=== PATIENT | female | born 1935 | race Caucasian/White ===

== ENCOUNTER 2017-09-28 12:29 | Emergency (ER) | payer MEDICARE, OTHER ==
[~2017-09-28] VITALS: Ht 157.5 cm; Wt 51.3 kg
[~2017-09-28 12:29] MED LIST: ASPI81CH; ATEN50 PO; OLME20
[2017-09-28] MEDS ORDERED: POTA10T PO (13:23)
[2017-09-28] MEDS ORDERED: ATEN50 PO (13:23)
[2017-09-28] MEDS ORDERED: FURO20 PO (13:24)
[2017-09-28] MEDS ORDERED: CHOL10002 PO (13:24)
[2017-09-28] MEDS ORDERED: CURAMIN (13:25)
[2017-09-28 14:06] LABS: BASOPHILS ABSOLUTE AUTO 0.05 K/mm3 (0.00-0.23); BASOPHILS PERCENT AUTO 1 % (0-2); EOSINOPHILS ABSOLUTE AUTO 0.15 K/mm3 (0.00-0.68); EOSINOPHILS PERCENT AUTO 3 % (0-6); Hematocrit 36.3 % (33.0-51.0); Hemoglobin 11.5 g/dL (11.5-16.0); IMMATURE GRAN ABSOLUTE AUTO 0.05 K/mm3 (0.00-0.10); IMMATURE GRAN PERCENT AUTO 1 % (0-1); LYMPHOCYTES ABSOLUTE AUTO 1.54 K/mm3 (0.84-5.20); LYMPHOCYTES PERCENT AUTO 27 % (21-46); MONOCYTES ABSOLUTE AUTO 0.51 K/mm3 (0.16-1.47); MONOCYTES PERCENT AUTO 9 % (4-13); Mean Corpuscular HGB 30.1 pg (26.0-34.0); Mean Corpuscular HGB Conc 31.7 g/dL (31.5-36.5); Mean Corpuscular Volume 95 fL (80-100); NEUTROPHILS ABSOLUTE AUTO 3.41 K/mm3 (1.96-9.15); NEUTROPHILS PERCENT AUTO 60 % (41-73); Platelet Count 172 K/mm3 (150-400); RDW Coefficient Variation 13.7 % (11.7-14.2); RDW Standard Deviation 47.7 fL (35.1-46.3); Red Blood Cell Count 3.82 M/mm3 (3.80-5.20); White Blood Cell Count 5.71 K/mm3 (4.00-11.30)
[2017-09-28 14:13] LABS: Albumin, Blood 3.6 g/dL (3.4-5.0); Albumin/Globulin Ratio 1.2 (0.8-1.8); Bilirubin, Total 0.4 mg/dL (0.1-1.0); Bun/Creatinine Ratio 19.7 (12.0-20.0); Calcium, Blood 8.8 mg/dL (8.5-10.1); Creatinine, Blood 1.17 mg/dL (0.40-1.00); Globulin, Blood 2.9 g/dL (2.2-4.0); Total Protein, Blood 6.5 g/dL (6.4-8.2)
== END 2017-09-28 15:01 | disposition home or self-care (01) ==
LOC: ER 12:29
PROVIDERS: Internal Medicine
DX: G45.9 Transient cerebral ischemic attack, unspecified (principal); I10 Essential (primary) hypertension; Z88.1 Allergy status to other antibiotic agents; Z88.0 Allergy status to penicillin; Z79.82 Long term (current) use of aspirin; Z79.899 Other long term (current) drug therapy
CPT/HCPCS: 36415; 70450; 80053; 81000; 85025; 93005; 93010; 93880; 99284

== ENCOUNTER 2020-03-14 05:05 | Emergency (ER) | payer MEDICARE, OTHER ==
[~2020-03-14] VITALS: Ht 154.9 cm; Wt 54.4 kg
[~2020-03-14 05:05] MED LIST changes: +CHOL10002 PO; +CURAMIN; +FURO20 PO; +POTA10T PO
== END 2020-03-14 09:40 | disposition home or self-care (01) ==
LOC: ER 05:05
DX: S22.089A Unspecified fracture of T11-T12 vertebra, initial encounter for closed fracture (principal); Z79.82 Long term (current) use of aspirin; Z79.899 Other long term (current) drug therapy; W01.0XXA Fall on same level from slipping, tripping and stumbling without subsequent striking against object, initial encounter
CPT/HCPCS: 72131; 93005; 93010; 99284-25

== ENCOUNTER 2020-10-26 06:00 | Inpatient (IN) | payer MEDICARE, OTHER ==
[~2020-10-26] VITALS: Ht 154.9 cm; Wt 46.2 kg
[2020-10-26 06:59] LABS: BASOPHILS ABSOLUTE AUTO 0.03 K/mm3 (0.00-0.23); BASOPHILS PERCENT AUTO 0 % (0-2); EOSINOPHILS ABSOLUTE AUTO 0.06 K/mm3 (0.00-0.68); EOSINOPHILS PERCENT AUTO 1 % (0-6); Hematocrit 38.7 % (33.0-51.0); Hemoglobin 12.2 g/dL (11.5-16.0); IMMATURE GRAN ABSOLUTE AUTO 0.04 K/mm3 (0.00-0.10); IMMATURE GRAN PERCENT AUTO 1 % (0-1); LYMPHOCYTES ABSOLUTE AUTO 0.69 K/mm3 (0.84-5.20); LYMPHOCYTES PERCENT AUTO 10 % (21-46); MONOCYTES ABSOLUTE AUTO 0.47 K/mm3 (0.16-1.47); MONOCYTES PERCENT AUTO 7 % (4-13); Mean Corpuscular HGB 28.9 pg (26.0-34.0); Mean Corpuscular HGB Conc 31.5 g/dL (31.5-36.5); Mean Corpuscular Volume 92 fL (80-100); Mean Platelet Volume 11.4 fL (9.1-12.4); NEUTROPHILS ABSOLUTE AUTO 5.63 K/mm3 (1.96-9.15); NEUTROPHILS PERCENT AUTO 81 % (41-73); Platelet Count 184 K/mm3 (150-400); RDW Coefficient Variation 13.9 % (11.7-14.2); Red Blood Cell Count 4.22 M/mm3 (3.80-5.20); White Blood Cell Count 6.92 K/mm3 (4.00-11.30)
[2020-10-26 07:16] LABS: Alanine Aminotransfer (ALT/SGP 16 U/L (12-78); Albumin, Blood 3.9 g/dL (3.4-5.0); Albumin/Globulin Ratio 1.2 (0.8-1.8); Alk Phos 42 U/L (50-136); Anion Gap 7 mmol/L (6-16); Aspartate Aminotrans (AST/SGOT 20 U/L (12-37); Bilirubin, Total 0.8 mg/dL (0.1-1.0); Blood Urea Nitrogen 24 mg/dL (8-24); CO2, Blood 26 mmol/L (21-32); Calcium, Blood 8.6 mg/dL (8.5-10.1); Chloride, Blood 110 mmol/L (98-108); Creatinine, Blood 0.96 mg/dL (0.40-1.00); Globulin, Blood 3.2 g/dL (2.2-4.0); Glomerular Filtration Rate 59 (60-); Glucose, Blood 108 mg/dL (70-99); Potassium, Blood 3.7 mmol/L (3.5-5.5); Sodium, Blood 143 mmol/L (136-145); Total Protein, Blood 7.1 g/dL (6.4-8.2); Troponin I <0.015 ng/mL (0.000-0.040)
[2020-10-26 07:44] LABS: Source, Urine Clean Catch
[2020-10-26 07:54] LABS: Bilirubin, Urine Neg (Neg); Blood, Urine Neg (Neg); Glucose Qualitative, Urine Neg (Neg); Ketones, Urine Neg (Neg); Leukocyte Esterase, Urine Neg (Neg); Nitrite, Urine Neg (Neg); Protein, Urine Neg (Neg); Urobilinogen, Urine NORM (Normal)
[2020-10-26 08:23] LABS: Appearance, Urine Clear (Clear); Color, Urine Yellow (P-Yellow)
[2020-10-26 11:45] LABS: Magnesium, Blood 2.1 mg/dL (1.6-2.4); Thyroid Stimulating Hormone 4.27 uIU/mL (0.360-4.800)
--- NOTE | 2020-10-26 12:39 | NUR ---
Echocardiogram completed.
--- NOTE | 2020-10-26 15:50 | NUR ---
ARRIVES FROM E.R. ABOUT 1310. PATIENT FOUND DOWN AT HOME WITH UNKNOWN HOW LONG DOWN. S.O. HAS DEMENTIA AND PATIENT TAKES CARE OF HIM.SOME SWELLING TO LEFT LATERAL LOWER LEG. ALERT AND ORIENTED. PLEASANT. LEFT TECHNICAL ENGINEER SLIGHTLY WEAKER THAN RT, BUT IS RT HANDED. LEFT ARM DRIFT. TONGUE DOES NOT DEVIATE. NO SLURRED SPEECH BUT SOUNDS LIKE THICK TONGUE WITH PATIENT SAYING NOT HER NORMAL VOICE. ONE PERSON ASSIST TO BSC. IV PATENT WITH FLUID RUNNING. LUNGS CLEAR. 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 SOME DIFFICULTY SWOLLOWING AND DIET CHANGED TO PUREE, NO STRAWS. WCTM
--- NOTE | 2020-10-26 18:25 | NUR ---
ALERT. ORIENTED. TELE ON AND PER TECH AFIB AT 80. SOUNDS LIKE AFIB NEW DX. BED ALARM ON PATIENT FORGETS TO ASK FOR ASSISTANCE WITH TOILETING. NO CHANGES IN ASSESSMENT. WCTM
--- NOTE | 2020-10-27 04:29 | NUR ---
SHIFT SUMMARY: 85 Y/O FEMALE RESTED COMFORTABLY IN BED; CHEERFUL; DENIES PAIN OR NAUSEA; BED ALARM APPLIED FOR SAFETY; BED LOW POSITION WITH CALL LIGHT AT SIDE.
[2020-10-27 06:02] LABS: BASOPHILS ABSOLUTE AUTO 0.03 K/mm3 (0.00-0.23); BASOPHILS PERCENT AUTO 1 % (0-2); EOSINOPHILS ABSOLUTE AUTO 0.11 K/mm3 (0.00-0.68); EOSINOPHILS PERCENT AUTO 2 % (0-6); Hematocrit 35.9 % (33.0-51.0); Hemoglobin 11.3 g/dL (11.5-16.0); IMMATURE GRAN ABSOLUTE AUTO 0.01 K/mm3 (0.00-0.10); IMMATURE GRAN PERCENT AUTO 0 % (0-1); LYMPHOCYTES ABSOLUTE AUTO 1.42 K/mm3 (0.84-5.20); LYMPHOCYTES PERCENT AUTO 27 % (21-46); MONOCYTES ABSOLUTE AUTO 0.45 K/mm3 (0.16-1.47); MONOCYTES PERCENT AUTO 9 % (4-13); Mean Corpuscular HGB 29.4 pg (26.0-34.0); Mean Corpuscular HGB Conc 31.5 g/dL (31.5-36.5); Mean Corpuscular Volume 94 fL (80-100); Mean Platelet Volume 11.4 fL (9.1-12.4); NEUTROPHILS ABSOLUTE AUTO 3.17 K/mm3 (1.96-9.15); NEUTROPHILS PERCENT AUTO 61 % (41-73); Platelet Count 171 K/mm3 (150-400); RDW Coefficient Variation 14.1 % (11.7-14.2); RDW Standard Deviation 47.8 fL (35.1-46.3); Red Blood Cell Count 3.84 M/mm3 (3.80-5.20); White Blood Cell Count 5.19 K/mm3 (4.00-11.30)
[2020-10-27 06:39] LABS: Alanine Aminotransfer (ALT/SGP 16 U/L (12-78); Albumin, Blood 3.6 g/dL (3.4-5.0); Albumin/Globulin Ratio 1.2 (0.8-1.8); Alk Phos 39 U/L (50-136); Anion Gap 8 mmol/L (6-16); Aspartate Aminotrans (AST/SGOT 19 U/L (12-37); Bilirubin, Total 0.9 mg/dL (0.1-1.0); Blood Urea Nitrogen 18 mg/dL (8-24); Bun/Creatinine Ratio 20.1 (12.0-20.0); CHOL/HDL RATIO 4.6; CO2, Blood 24 mmol/L (21-32); Calcium, Blood 7.9 mg/dL (8.5-10.1); Chloride, Blood 113 mmol/L (98-108); Cholesterol 226 mg/dL (50-200); Globulin, Blood 2.9 g/dL (2.2-4.0); Glomerular Filtration Rate >60 (60-); Glucose, Blood 85 mg/dL (70-99); HDL Cholesterol 49 mg/dL (>39); LDL/HDL RATIO 2.8; Low Density Lipoprotein Chol 138 mg/dL (0-110); Magnesium, Blood 2.1 mg/dL (1.6-2.4); Potassium, Blood 2.9 mmol/L (3.5-5.5); Sodium, Blood 145 mmol/L (136-145); Total Protein, Blood 6.5 g/dL (6.4-8.2); Triglycerides 194 mg/dL (30-160); Very Low Density Lipoprot Chol 38 mg/dL (6-32)
--- NOTE | 2020-10-27 17:26 | NUR ---
SUMMARY PT SITTING UP AT THE EDGE OF THE BED TALKING ON THE PHONE, PT HAS BEEN PLEASANT AND COOPERATIVE WITH CARE T/O THE DAY, OCC EXPRESSIVE APHASIA NOTED, PT/OT WORKED WITH THE PT AND ARE RECOMMENDING SNF, PT IS WEAK, UP WITH 1P ASSIST, UNSTEADY GAIT, DENIES PAIN OR SOB, VSS, WILL CONT TO MONITOR
--- NOTE | 2020-10-27 20:02 | NUR ---
BP at 1944 was 153/93 after getting back to bed from using bedside commode. Will recheck at 2044 after patient has had a chance to relax. If no change, will call hospitalist to request PRN.
--- NOTE | 2020-10-28 05:17 | NUR ---
PROCESS OWNER SUMMARY. Vinny had a comfortable night with exception of when the alarm would ring while she would try to get oob. Patient is voiding small 150-200ml quantities of dilute yellow urine approx 3-4 times nightly. was informed of elevated blood pressures systolic 170's, diastolic high 90's. due to her recent ischemic CVA, he said to just keep an eye on it for the time being
[2020-10-28 08:53] LABS: Anion Gap 4 mmol/L (6-16); Blood Urea Nitrogen 17 mg/dL (8-24); Bun/Creatinine Ratio 19.8 (12.0-20.0); CO2, Blood 26 mmol/L (21-32); Calcium, Blood 8.6 mg/dL (8.5-10.1); Chloride, Blood 111 mmol/L (98-108); Creatinine, Blood 0.86 mg/dL (0.40-1.00); Glomerular Filtration Rate >60 (60-); Glucose, Blood 97 mg/dL (70-99); Sodium, Blood 141 mmol/L (136-145)
[2020-10-28] MEDS ORDERED: METO25ER PO (14:38)
[2020-10-28] MEDS ORDERED: ASPI81CH PO (14:38)
[2020-10-28] MEDS ORDERED: ATOR20 PO (14:38)
[2020-10-28 15:31] LABS: SARS-Cov-2 (COVID-19) PCR, MMC NEGATIVE (NEGATIVE)
--- NOTE | 2020-10-28 17:27 | NUR ---
SUMMARY/DISCHARGE PT DISCHARGED TO [facility], WAITING FOR TRANSPORT, ARRANGED BY CARE MANAGEMENT, WILL CALL REPORT ONCE THEY ARRIVE
--- NOTE | 2020-10-28 18:11 | NUR ---
SUMMARY/DISCHARGE PT DISCHARGED TO [facility], TAKEN OUT SAFELY VIA WHEELCHAIR, ATTEMPTING TO CALL REPORT, CURRENTLY ON HOLD...
--- NOTE | 2020-10-28 18:34 | NUR ---
REPORT GIVEN TO NURSE AT [facility]
== END 2020-10-28 18:02 | DRG 65 ==
LOC: ER 06:00 → ERHOLD 10:01 → MEDS 13:03 → ENPENDDIS 10-28 14:56 → MEDS 10-28 18:02
PROVIDERS: Emergency Medicine; Nurse Practitioner Acute Care; ADMIT Internal Medicine
DX: I63.9 Cerebral infarction, unspecified (principal); G81.94 Hemiplegia, unspecified affecting left nondominant side; C79.51 Secondary malignant neoplasm of bone; Z20.822 Contact with and (suspected) exposure to COVID-19; R47.81 Slurred speech; I48.91 Unspecified atrial fibrillation; I10 Essential (primary) hypertension; C50.919 Malignant neoplasm of unspecified site of unspecified female breast; R54 Age-related physical debility; M79.89 Other specified soft tissue disorders; R29.6 Repeated falls; Z79.899 Other long term (current) drug therapy; Z79.82 Long term (current) use of aspirin; Z88.5 Allergy status to narcotic agent; Z88.1 Allergy status to other antibiotic agents
CPT/HCPCS: 36415; 70450; 80048; 80053; 80061; 81003; 83735; 84443; 84484; 85025; 92507; 92523; 92526; 92610; 93005; 93010; 93306; 93880; 93971; 97110; 97112; 97116; 97162; 97166; 97530; 97535; 99285-25; A9270; J1650; J7030; U0004

== ENCOUNTER 2022-01-27 19:49 | Emergency (ER) | payer MEDICARE, OTHER ==
[~2022-01-27] VITALS: Ht 157.5 cm; Wt 40.8 kg
[~2022-01-27 19:49] MED LIST changes: +ASPI81CH PO; +ATOR20 PO; +METO25ER PO
[2022-01-27 20:37] LABS: Influenza A, PCR NEGATIVE (NEGATIVE); Influenza B, PCR NEGATIVE (NEGATIVE); Resp Syncytial Virus, PCR NEGATIVE (NEGATIVE)
[2022-01-27 20:56] LABS: SARS-Cov-2 (COVID-19) PCR, MMC POSITIVE (NEGATIVE)
== END 2022-01-27 21:56 | disposition home or self-care (01) ==
LOC: ER 19:49
PROVIDERS: Student in an Organized Health Care Education/Training Program
DX: U07.1 COVID-19 (principal); I10 Essential (primary) hypertension; Z87.891 Personal history of nicotine dependence; Z88.0 Allergy status to penicillin; Z88.5 Allergy status to narcotic agent; Z79.899 Other long term (current) drug therapy; Z79.82 Long term (current) use of aspirin
CPT/HCPCS: 0241U; A9270

== ENCOUNTER → 2022-09-19 | Outpatient (CLI) | payer MEDICARE, OTHER ==
[2022-09-20 10:18] LABS: Source, Urine Clean Catch
[2022-09-20 11:10] LABS: Appearance, Urine Clear (Clear); Bilirubin, Urine Neg (Neg); Blood, Urine Neg (Neg); Color, Urine Yellow (P-Yellow); Glucose Qualitative, Urine Neg (Neg); Ketones, Urine Neg (Neg); Leukocyte Esterase, Urine 2+ (Neg); Nitrite, Urine Neg (Neg); Protein, Urine 2+ (Neg); Urobilinogen, Urine NORM (Normal)
[2022-09-20 12:04] LABS: Bacteria Few /hpf; Red Blood Cells, Urine Not Seen /hpf (0-2); Squamous Epithelial Cells Rare /hpf (Few)
== END | disposition home or self-care (01) ==
LOC: LAB SHORT 19:40
PROVIDERS: Internal Medicine
DX: N39.0 Urinary tract infection, site not specified (principal)
CPT/HCPCS: 81001

== ENCOUNTER → 2022-11-13 | Outpatient (CLI) | payer MEDICARE, OTHER ==
[2022-11-13 17:57] LABS: Source, Urine Clean Catch
[2022-11-13 19:21] LABS: Appearance, Urine Hazy (Clear); Bilirubin, Urine Neg (Neg); Blood, Urine Neg (Neg); Color, Urine Yellow (P-Yellow); Glucose Qualitative, Urine Neg (Neg); Ketones, Urine Neg (Neg); Leukocyte Esterase, Urine 2+ (Neg); Nitrite, Urine Neg (Neg); Protein, Urine Neg (Neg); Urobilinogen, Urine NORM (Normal)
[2022-11-13 19:46] LABS: Bacteria Many /hpf; Red Blood Cells, Urine 0-2 /hpf (0-2); Squamous Epithelial Cells Many /hpf (Few); Transitional Epithelial Cells Few /hpf (0-Rare)
[2022-11-13 20:01] LABS: Albumin, Blood 3.1 g/dL (3.4-5.0); Albumin/Globulin Ratio 0.8 (0.8-1.8); Bilirubin, Total 1.2 mg/dL (0.1-1.0); Bun/Creatinine Ratio 24.3 (12.0-20.0); Calcium, Blood 9.4 mg/dL (8.5-10.1); Creatinine, Blood 1.15 mg/dL (0.40-1.00); Potassium, Blood 3.6 mmol/L (3.5-5.5); Total Protein, Blood 7.1 g/dL (6.4-8.2)
== END | disposition home or self-care (01) ==
LOC: LAB SHORT 17:56
PROVIDERS: Internal Medicine
DX: N39.0 Urinary tract infection, site not specified (principal); E87.6 Hypokalemia
CPT/HCPCS: 80053; 81001; 87086

== ENCOUNTER 2022-12-24 09:44 | Observation (INO) | payer MEDICARE, OTHER ==
[~2022-12-24] VITALS: Ht 157.5 cm; Wt 45.0 kg
[2022-12-24] MEDS ORDERED: AMLODIPINE BES2.5 MG PO (10:08)
[2022-12-24] MEDS ORDERED: CLOP75 PO (10:09)
[2022-12-24] MEDS ORDERED: LOPE2C PO (10:10)
[2022-12-24] MEDS ORDERED: MELA3 PO (10:24)
[2022-12-24] MEDS ORDERED: ACET500 PO (10:25)
[2022-12-24 10:32] LABS: BASOPHILS ABSOLUTE AUTO 0.03 K/mm3 (0.00-0.23); BASOPHILS PERCENT AUTO 0 % (0-2); EOSINOPHILS PERCENT AUTO 0 % (0-6); Hematocrit 34.3 % (33.0-51.0); IMMATURE GRAN ABSOLUTE AUTO 0.09 K/mm3 (0.00-0.10); IMMATURE GRAN PERCENT AUTO 1 % (0-1); LYMPHOCYTES ABSOLUTE AUTO 0.68 K/mm3 (0.84-5.20); LYMPHOCYTES PERCENT AUTO 7 % (21-46); MONOCYTES PERCENT AUTO 9 % (4-13); Mean Corpuscular HGB 30.7 pg (26.0-34.0); Mean Corpuscular HGB Conc 32.1 g/dL (31.5-36.5); Mean Corpuscular Volume 96 fL (80-100); Mean Platelet Volume 12.2 fL (9.1-12.4); NEUTROPHILS ABSOLUTE AUTO 8.61 K/mm3 (1.96-9.15); NEUTROPHILS PERCENT AUTO 84 % (41-73); NRBC ABSOLUTE 0.03 K/mm3 (0.00-0.02); NRBC Auto 0.3 /100 WBC (0.0-0.2); Platelet Count 213 K/mm3 (150-400); RDW Coefficient Variation 21.2 % (11.7-14.2); RDW Standard Deviation 70.9 fL (35.1-46.3); Red Blood Cell Count 3.58 M/mm3 (3.80-5.20); White Blood Cell Count 10.31 K/mm3 (4.00-11.30)
[2022-12-24 10:50] LABS: International Normalized Ratio 1.34; Prothrombin Time Results 13.8 Sec (9.7-11.5)
[2022-12-24 12:46] LABS: Albumin, Blood 2.4 g/dL (3.4-5.0); Albumin/Globulin Ratio 0.6 (0.8-1.8); Bilirubin, Total 7.9 mg/dL (0.1-1.0); Bun/Creatinine Ratio 28.1 (12.0-20.0); Calcium, Blood 8.9 mg/dL (8.5-10.1); Creatinine, Blood 2.35 mg/dL (0.40-1.00); Potassium, Blood 5.5 mmol/L (3.5-5.5); Total Protein, Blood 6.4 g/dL (6.4-8.2)
[2022-12-24 12:47] LABS: Bilirubin, Direct 5.8 mg/dL (0.0-0.3); Bilirubin, Indirect 2.1 mg/dL (0.1-0.7)
--- NOTE | 2022-12-24 18:12 | NUR ---
pt in very ill falling at senior living and gi bleed. diagnostics show metatatic disease. Review with [facility] staff nurse changes in status. They suggest hospice. Review of prognosis with pt so nad brother. Plan is hospice with amedysis and back to senior living. They do not have the nursing staffing to take pt back late in day will take her in AM. Order for hospice and packet sent.
[2022-12-24 19:56] VITALS: BP 106/62
--- NOTE | 2022-12-25 00:30 | NUR ---
ADMIT DONE PT NOT A GOOD HISTORIAN AND WILL NOT RESPOND TO ANY QUESTIONS. DOES STATE SHE HAS NO PAIN PUR WIK APPLIED FOR COMFORT PT SKIN ASSESSMENT DONE AND IS NOW LAYING ON SIDE COMFORTABLY.
--- NOTE | 2022-12-25 04:22 | NUR ---
SHIFT ASSESSMENT ADMITTED FROM ER VERY PLEASENT SLOW TO SPEAK AND SEEMS CONFUSED BUT IS ABLE TO ANSWER APPROPRIATLEY ABOUT PAING OR COMFORT, SKIN INTACK BUT HAS SIGNIFICANT BRUISING TO RIGHT HIP AND SCATTERED THROUGHTOUT BODY. PT GROWING VERY CONCUSED AND AGITATED TAKING OFF CLOTHS AND PULLING AT LINES, PT WAS MEDICATED AND SEEMS LESS RESTLESS, IV COVERED WITH COBAN AND PT TURNED ONTO SIDE.
--- NOTE | 2022-12-25 06:23 | NUR ---
PULLED OFF CLOTHS AND VERY CLEARLY STATED SHE WANTED TO BE NAKED AND NOT COVERED. AFTER ALLOWING FOR SOMETIME I CONVINCED PT TO ALLOW ME TO COVER HER YET SHE WAS STILL VERY AGITATED SHE ALLOWED ME TO DRESS HER. PT GIVEN MEDICATION TO HELP CALM AND IS NOW SLEEPING COMFORTABLY.
--- NOTE | 2022-12-25 10:35 | NUR ---
Spoke with NATALIE Koenig and discussed case. Pt to D/C today back to [facility] on hospice services and will need a POLST completed. Pt resting in bed with her eyes closed. Pt appears comfortable with no S/S of distress at this time. Pt's brother at bedside. Assisted with completing POLST and brother signs POLST. Provided POLST to NATALIE Koenig who will obtain physician signature for POLST and send copy of POLST to medical records. Palliative Care will remain available
[2022-12-25] MEDS ORDERED: HALO2 IM (12:19)
[2022-12-25] MEDS ORDERED: Ativan1 MG PO (12:20)
[2022-12-25] MEDS ORDERED: MORP20L SL (12:22)
[2022-12-25] MEDS ORDERED: ONDA4ODT MM (12:23)
--- NOTE | 2022-12-25 12:45 | NUR ---
[facility] IN TO PICK PT UP [facility] [employer] TO RETURN TO [place] [facility]. BROTHER HERE MOST OF MORNING WITH PT. DID OPEN HER EYES WHEN SHE WAS REPOSITIONED BUT DIDNT APPEAR IN PAIN. MEDICATED THOUGH PRIOR TO DISCHARGING FOR [facility].
== END 2022-12-25 12:18 | disposition hospice, home (50) ==
LOC: ER 09:44 → MEDS 09:45 → ENPENDDIS 12-25 10:42 → MEDS 12-25 12:18
PROVIDERS: Student in an Organized Health Care Education/Training Program; ADMIT Internal Medicine
DX: Z51.5 Encounter for palliative care (principal); I48.0 Paroxysmal atrial fibrillation; I10 Essential (primary) hypertension; C50.919 Malignant neoplasm of unspecified site of unspecified female breast; Z86.73 Personal history of transient ischemic attack (TIA), and cerebral infarction without residual deficits; C78.7 Secondary malignant neoplasm of liver and intrahepatic bile duct; C79.31 Secondary malignant neoplasm of brain; N18.9 Chronic kidney disease, unspecified; E87.0 Hyperosmolality and hypernatremia; E78.00 Pure hypercholesterolemia, unspecified; I12.9 Hypertensive chronic kidney disease with stage 1 through stage 4 chronic kidney disease, or unspecified chronic kidney disease; K72.90 Hepatic failure, unspecified without coma
CPT/HCPCS: 74177; 80048; 80076; 82140; 85025; 85610; 85730; 96372-59; 96374-59; 96375; 99285-25; A9270; C9113; G0378; J1630; Q9967